=== PATIENT | female | born 2000 | race Caucasian/White ===

== ENCOUNTER 2021-10-22 09:55 | Emergency (ER) | payer BC ==
[2021-10-22] MEDS ORDERED: CHERRY SYRUP 10 ML UDC PO ONE (10:23)
[2021-10-22] MEDS ORDERED: DEXAMETHASONE 10 MG/ML VIAL PO STA (10:23)
[2021-10-22] MEDS ORDERED: IPRATROPIUM/ALBUTEROL 3 ML NEB INH STA (10:23)
[2021-10-22] MEDS ORDERED: LIDOCAINE VISCOUS 2% 15 ML UDC MM STA (10:24)
--- NOTE | 2021-10-22 10:26 | ED Physician Documentation ---
PD HPI URI - Stated complaint Stated Complaint: C+ COUGHING BLOOD/SOA - Chief complaint Chief Complaint: Resp - History obtained from History obtained from: Patient - History of Present Illness Timing - onset: How many days ago (3) - Additional information Additional information: 21-year-old female with history of asthma presents for cough, sore throat, COVID-19 positive. Patient states that last night she was wheezing and feels short of breath today. She states that this feels like her asthma flareup, she does not have an inhaler at this time. Patient states that this morning she coughed up a small amount of pink-tinged sputum and her camp counselor recommended she be evaluated in the ED. patient states that everyone in her camp is COVID-19 positive, she is hoarse and has lost her voice Review of Systems Ten Systems: 10 systems reviewed and negative Constitutional: reports: Fever, Chills Eyes: denies: Loss of vision, Decreased vision, Photophobia Ears: denies: Loss of hearing, Ear pain, Drainage/discharge Nose: denies: Rhinorrhea / runny nose, Congestion, Foreign Body Throat: reports: Sore throat. denies: Dental pain / toothache, Oral lesions / sores, Swollen tonsils Cardiac: denies: Chest pain / pressure, Palpitations Respiratory: reports: Dyspnea, Cough, Hemoptysis ("pink tinge sputum"), Wheezing GI: denies: Abdominal Pain, Abdominal Swelling, Nausea, Vomiting : denies: Dysuria, Frequency, Hesitancy PD PAST MEDICAL HISTORY - Past Medical History Past Medical History: Yes Respiratory: Asthma - Present Medications Home Medications: Ambulatory Orders Medication Instructions Recorded Confirmed Albuterol Sulf [Ventolin Hfa 1 - 2 puffs INH Q4HR PRN #1 gm 10/22/21 Inhaler] predniSONE [Deltasone] 20 mg PO DAILY 5 Days #5 tablet 10/22/21 - Allergies Allergies/Adverse Reactions: Allergies Allergy/AdvReac Type Severity Reaction Status Date / Time amoxicillin Allergy Rash Verified 10/22/21 10:06 PD ED PE NORMAL - Vitals Vital signs reviewed: Yes - General General: Alert and oriented X 3, No acute distress, Well developed/nourished - HEENT HEENT: Atraumatic, PERRL, EOMI, Ears normal, Moist mucous membranes, Other (phar yngeal erythema) - Neck Neck: Supple, no meningeal sign, Thyroid normal, No JVD - Cardiac Cardiac: RRR, No murmur, Strong equal pulses - Respiratory Respiratory: No respiratory distress, Clear bilaterally - Abdomen Abdomen: Soft, Non tender, Non distended - Back Back: No CVA TTP, No spinal TTP - Derm Derm: Normal color, Warm and dry, No rash - Extremities Extremities: No deformity, No tenderness to palpate, Normal ROM s pain, No edema - Neuro Neuro: Alert and oriented X 3, spiritual care coordinator 2-12 intact, No motor deficit, No sensory deficit, Normal speech - Psych Psych: Normal mood, Normal affect Results - Vitals Vitals: Vital Signs - 24 hr 10/22/21 10/22/21 10/22/21 10:01 11:13 11:31 Temperature 36.7 C 36.8 C Heart Rate 84 64 84 Respiratory 16 20 20 Rate Blood Pressure 146/93 H 125/91 H O2 Saturation 98 100 Oxygen O2 Source Room air PD MEDICAL DECISION MAKING - ED course Complexity details: reviewed results, re-evaluated patient, considered differential, d/w patient ED course: Well-appearing female with pink-tinged sputum this morning, known to be COVID-19 positive. Patient is hoarse and endorses sore throat, patient's "blood" is likely secondary to irritation from laryngitis. Lungs are clear to auscultation bilaterally, no wheezing, rales, rhonchi. Patient was given a nebulizer treatment and steroids. She is discharged with a refill of her albuterol inhaler as well as a very short course of prescriptions given her history of asthma and reported shortness of breath. Patient discharged in stable condition. Departure - Departure Disposition: 01 Home, Self Care Clinical Impression: Asthma, COVID-19 Condition: Stable Instructions: ED Inhaler Use, ED Viral Syndrome Prescriptions: Albuterol Sulf [Ventolin Hfa Inhaler] 1 - 2 puffs INH Q4HR PRN #1 gm PRN Reason: Shortness Of Air/Wheezing predniSONE [Deltasone] 20 mg PO DAILY 5 Days #5 tablet Comments: Your chest x-ray was normal. The blood that you notice when you cough is likely from inflammation in your throat. You may take throat lozenges as needed for comfort. If you continue to feel short of breath a nebulizer has been sent to the pharmacy with a very short course of steroids. Your prescriptions have been sent to the [facility] next door Discharge Date/Time: 10/22/21 11:34
[2021-10-22] MEDS ORDERED: ALBUTEROL 1 PUFF INH STA (10:57)
--- NOTE | 2021-10-22 11:02 | XRAY Report ---
PROCEDURE: Chest 1 View X-Ray INDICATIONS: COUGH/WHEEZING/C19+ TECHNIQUE: One view of the chest was acquired. COMPARISON: None FINDINGS: Surgical changes and devices: None. Lungs and pleura: No pleural effusions or pneumothorax. Lungs are clear. Mediastinum: Mediastinal contours appear normal. Heart size is normal. Bones and chest wall: No suspicious bony lesions. Overlying soft tissues appear unremarkable. IMPRESSION: No acute cardiopulmonary disease process. Reviewed by: Marilee Olmstead MD, PhD on 10/22/2021 11:00 AM PDT Approved by: Marilee Olmstead MD, PhD on 10/22/2021 11:00 AM PDT Station ID: [id number]
[2021-10-22 11:32] VITALS: BP 125/91
== END 2021-10-22 11:34 | disposition home or self-care (01) ==
LOC: ED 09:55
DX: U07.1 COVID-19 (principal); J04.0 Acute laryngitis; J45.909 Unspecified asthma, uncomplicated
CPT/HCPCS: 71045; 94640; 94664; 99283; 99284; A9270